=== PATIENT | male | born 1975 | race Caucasian/White ===

== ENCOUNTER 2019-04-04 01:14 | Outpatient (CLI) | payer BC, SELFPAY ==
[2019-04-04 09:18] LABS: Anion Gap 9.8 mmol/L (3-11); BUN 21 mg/dL (7-18); CO2 26.2 mmol/L (21.0-32.0); CREATININE 1.24 mg/dL (0.70-1.30); Calcium 9.1 mg/dL (8.5-10.1); Chloride 104 mmol/L (98-107); Glucose 121 mg/dL (70-100); Potassium 4.2 mmol/L (3.5-5.1); Sodium 140 mmol/L (136-145)
== END 2019-04-04 01:34 ==
PROVIDERS: PCP Physician Assistant Medical; Visit Provider Physician Assistant Medical
DX: Z79.899 Other long term (current) drug therapy (principal)
CPT/HCPCS: 36415; 80048

== ENCOUNTER 2020-01-25 00:45 | Outpatient (CLI) | payer MEDICAID, SELFPAY ==
--- NOTE | 2020-01-25 | DI.US_ITS ---
EXAM: US SCROTUM CLINICAL HISTORY: TESTICULAR MASS LT, N50.9. TECHNIQUE: Scrotal ultrasound performed using grayscale, color-flow and spectral Doppler analysis. COMPARISON: No exams were available for comparison FINDINGS: Right testicle: 4.7 x 2.7 x 3.6 cm Echogenicity: Normal. Contour: Smooth. Mass: None seen. Microlithiasis: None. Hydrocele: Small right hydrocele measuring 2.5 x 0.8 x 1.8 cm. Variocele: None. Hernia: No peristalsing bowel loop identified. Epididymis: Small epididymal head cysts. The largest measures 5 mm. Left testicle: 5.1 x 2.9 x 3.3 cm Echogenicity: Normal. Contour: Smooth. Mass: None seen. Microlithiasis: None. Hydrocele: Small left hydrocele measuring 1.7 x 1.4 x 0.7 cm. Variocele: None. Hernia: No peristalsing bowel loop identified. Epididymis: 2 epididymal head cysts. The largest measures 1.1 x 0.8 x 1.4 cm. DOPPLER: Color: Symmetric and uniform, no hyperemia. Duplex: Bilateral testicular arterial waveforms visualized. IMPRESSION: 1. No evidence of an intra testicular mass. 2. Bilateral epididymal head cysts. 3. Small bilateral hydroceles. DATA REPOSITORY:
== END 2020-01-25 01:05 ==
PROVIDERS: PCP Physician Assistant Medical; Visit Provider Physician Assistant Medical
DX: N50.89 Other specified disorders of the male genital organs (principal); N43.3 Hydrocele, unspecified; N50.3 Cyst of epididymis
CPT/HCPCS: 76870

== ENCOUNTER 2020-05-16 12:12 | Outpatient (REF) | payer MEDICAID, SELFPAY ==
[2020-05-21 10:51] LABS: Patient Race White; SARS-CoV-2 RNA Undetected (Undetected); SARS-CoV-2 Specimen Source Nasal
== END 2020-05-16 12:32 ==
LOC: NCHCN 12:12
PROVIDERS: PCP Physician Assistant Medical; Visit Provider Family Medicine
DX: R05 Cough (principal); J02.9 Acute pharyngitis, unspecified
CPT/HCPCS: U0003; 87070

== ENCOUNTER 2020-09-26 10:52 | Outpatient (REF) | payer MEDICAID, SELFPAY ==
--- OUTSIDE RECORDS SUMMARY | 2020-09-26 10:56 | XMS_ITS ---
:1975 Author Care Team Providers Name Role Phone [facility] MEDICAL RECORDS Primary Care Provider [phone] ANGELITO DORMAN Primary Care Provider [phone] Allergies Code Code System Name Reaction Severity Status Onset 548657 RxNorm Buspar ? ? Active ? 688419 RxNorm Lamictal ? ? Active ? 709456 RxNorm Nexium ? ? Active ? Sulfa ? ? Active ? (Sulfonamide Antibiotics) Medications Name Status Start Date Stop Date ? ? alprazolam 0.5 mg disintegrating tablet Active ? Not available Take 1 tablet 3 times a day by oral route. alprazolam 2 mg tablet Active ? Not avail able Take 1 tablet 3 times a day by oral route. Celebrex 100 mg capsule Active ? Not avai lable Take 1 capsule every day by oral route. clonidine HCl 0.1 mg tablet Active ? Not available Take 1 tablet twice a day by oral route. gabapentin 100 mg capsule Active ? Not av ailable Take 1 capsule 3 times a day by oral route. indomethacin 50 mg capsule Active ? Not a vailable Take 1 capsule 3 times a day by oral route. mupirocin 2 % topical ointment Completed ? 0 12/13/2019 APPLY A SMALL AMOUNT TO THE AFFECTED AREA BY TOPICAL ROUTE 3 TI MES PER DAY oxcarbazepine 600 mg tablet Active ? Not available Take 1 tablet twice a day by oral route. ranitidine 150 mg capsule Active ? Not av ailable Take 1 capsule twice a day by oral route. Problems Name Status Onset Date Source ? Obesity Active 12/11/2019 ? Bipolar Disorder Active 12/11/2019 ? Anxiety Active 12/11/2019 ? Agoraphobia Active 12/11/2019 ? Tobacco User Active 12/11/2019 ? Reactive Depression (Situational) Active 12/11/2019 ? Depressive Disorder Active 12/11/2019 ? Sleep Disorder Active 12/11/2019 ? Headache Active 12/11/2019 ? Apnea Active 12/11/2019 ? Medication Monitoring Active 12/11/2019 ? Snoring Active 12/12/2019 ? Psychophysiologic Insomnia Active 12/13/2019 ? Obstructive Sleep Apnea Syndrome Active ? ? Procedures None recorded. Results Lab Results None recorded. Past Encounters 05/21/2020 Obstructive Sleep Apnea Syndrome [place] [employer]: [address] [phone], Ph. 12/13/2019 Snoring; Psychophysiologic Insomnia [employer] [place]: [address] [phone], Ph. Social History Tobacco Smoking Status Heavy Tobacco Smoker (1 PPD) Notes: still smoking Vaccine List None recorded. Plan of Care Reminders Provider Appointments None ? ? recorded. Lab None ? ? recorded. Referral None ? ? recorded. Procedures None ? ? recorded. Surgeries None ? ? recorded. Imaging None ? ? recorded. Vitals 05/21/2020 03:45PM Office 30 Height Weight BMI 182.88 cm 111.13 kg 33.2 kg/m2 12/13/2019 08:30AM New Patient 47 Height Weight BMI 182.88 cm 113.4 kg 33.9 kg/m2
[2020-09-26 15:39] LABS: Abs Immature Grans 0.08 10^3/uL (0.0-0.06); Absolute Basophil Count 0.07 10^3/uL (0.0-0.2); Absolute Eosinophil Count 0.22 10^3/uL (0.0-0.7); Absolute Lymphocyte Count 2.17 10^3/uL (1.2-3.4); Absolute Monocyte Count 0.41 10^3/uL (0.1-0.8); Absolute Neutrophil Count 8.67 10^3/uL (1.2-6.7); Basophils % 0.6; Eosinophils % 1.9; HCT 54.9 % (40.0-50.0); HGB 18.6 g/dL (13.5-17.5); Immature Grans % 0.7; Lymphocytes % 18.7; MCH 27.6 pg (27.0-33.0); MCHC 33.9 % (32.0-36.0); MCV 81.3 fL (80-95); MPV 8.9 fL (8.0-11.0); Monocytes % 3.5; Neutrophils % 74.6; Nucleated RBC 0 %; Platelet Count 309 10^3/uL (130-400); RBC 6.75 10^6/uL (4.36-5.78); RDW 13.3 % (11.8-14.1); RDW-SD 38.5 fL; WBC 11.62 10^3/uL (4.4-10.8)
[2020-09-26 16:28] LABS: ALT 31 U/L (16-63); AST 16 U/L (15-37); Albumin 4.6 g/dL (3.4-5.0); Alkaline Phosphatase 98 U/L (46-116); BUN 24 mg/dL (7-18); Bilirubin, Total 0.3 mg/dL (0.2-1.0); Calcium 9.5 mg/dL (8.5-10.1); Chloride 104 mmol/L (98-107); Glucose 122 mg/dL (74-106); Potassium 4.8 mmol/L (3.5-5.1); Sodium 142 mmol/L (136-145); TSH 2.34 uIU/mL (0.36-3.74)
[2020-09-29 10:17] LABS: HIV-1/2 Ag & Ab Screen Negative (Negative)
== END 2020-09-26 10:53 | disposition home or self-care (01) ==
LOC: NCHCN 10:52
PROVIDERS: PCP Physician Assistant Medical; Visit Provider Physician Assistant Medical
DX: K21.9 Gastro-esophageal reflux disease without esophagitis (principal); Z11.4 Encounter for screening for human immunodeficiency virus [HIV]; Z79.899 Other long term (current) drug therapy
CPT/HCPCS: 80053; 87389; 84443; 85025

== ENCOUNTER 2021-05-12 16:25 | Outpatient (REF) | payer MEDICAID, SELFPAY ==
[2021-05-14 10:15] LABS: Lyme Ab w Rflx to Lyme Confirm Negative (Negative)
[2021-05-14 23:14] LABS: Anaplasma phagocytophilum Negative (Negative); B. miyamotoi PCR Negative (Negative); Babesia divergens/MO-1 Negative (Negative); Babesia duncani Negative (Negative); Babesia microti Negative (Negative); Ehrlichia chaffeensis Negative (Negative); Ehrlichia ewingii/canis Negative (Negative); Ehrlichia muris eauclairensis Negative (Negative)
== END 2021-05-12 16:26 | disposition home or self-care (01) ==
LOC: NCHCN 16:25
PROVIDERS: PCP Physician Assistant Medical; Visit Provider Physician Assistant Medical
DX: W57.XXXA Bitten or stung by nonvenomous insect and other nonvenomous arthropods, initial encounter (principal); T14.8XXA Other injury of unspecified body region, initial encounter
CPT/HCPCS: 87798; 86618

== ENCOUNTER 2023-05-03 19:32 | Outpatient (REF) | payer BC, MEDICAID, SELFPAY ==
[2023-05-03 15:48] LABS: Abs Immature Grans 0.07 10^3/uL (0.0-0.06); Absolute Eosinophil Count 0.26 10^3/uL (0.0-0.7); Absolute Lymphocyte Count 2.16 10^3/uL (1.2-3.4); Absolute Monocyte Count 0.43 10^3/uL (0.1-0.8); Absolute Neutrophil Count 8.04 10^3/uL (1.2-6.7); Basophils % 0.5; Eosinophils % 2.4; HCT 49.3 % (40.0-50.0); Immature Grans % 0.6; Lymphocytes % 19.6; MCH 27.8 pg (27.0-33.0); MCHC 34.5 % (32.0-36.0); MCV 81 fL (80-95); Monocytes % 3.9; Platelet Count 278 10^3/uL (130-400); RBC 6.12 10^6/uL (4.36-5.78); RDW 13.2 % (11.8-14.1); RDW-SD 37.7 fL; WBC 11.01 10^3/uL (4.4-10.8)
[2023-05-03 15:57] LABS: Absolute Basophil Count 0.06 10^3/uL (0.0-0.2)
[2023-05-03 16:02] LABS: ALT 32 U/L (16-63); AST 16 U/L (15-37); Albumin 3.9 g/dL (3.4-5.0); Alkaline Phosphatase 77 U/L (46-116); Anion Gap 7.7 mmol/L (3-11); BUN 21 mg/dL (7-18); Bilirubin, Total 0.4 mg/dL (0.2-1.0); CO2 22.3 mmol/L (21.0-32.0); CREATININE 0.9 mg/dL (0.70-1.30); Calcium 8.7 mg/dL (8.5-10.1); Calculated LDL 138 mg/dL (<100); Chloride 107 mmol/L (98-107); Cholesterol 191 mg/dL (<200); Estimated GFR 107.33 (mL/min/1.73m2); Glucose 113 mg/dL (74-106); HDL Cholesterol 26 mg/dL (40-60); Potassium 4.7 mmol/L (3.5-5.1); Sodium 137 mmol/L (136-145); Total Protein 7.2 g/dL (6.4-8.2); Triglyceride 137 mg/dL (<150)
[2023-05-04 14:12] LABS: Hemoglobin A1C 5.3 % (<5.7)
== END 2023-05-03 19:33 | disposition home or self-care (01) ==
LOC: NCHCN 19:32
PROVIDERS: PCP Physician Assistant Medical; Visit Provider Physician Assistant Medical
DX: Z00.8 Encounter for other general examination (principal); R73.01 Impaired fasting glucose
CPT/HCPCS: 80053; 80061; 83036; 85025

== ENCOUNTER 2024-12-09 01:03 | Emergency (ER) | payer OTHER, SELFPAY ==
[2024-12-09 01:14] VITALS: BP 168/90; PULSE 80; RESP 16; TEMP 36.1; O2SAT 97
[2024-12-09 01:38] VITALS: RESP 18
--- NOTE | 2024-12-09 01:41 | W.ED.GENAD ---
Discharge Plan Disposition Patient Disposition: Home Condition: Good Discharge Details Clinical Impression: Transient confusion Primary Care Provider: Jacqueline Grier ED Provider: Crow De La Fuente Home Meds and New Rx's Prescriptions: No Action fluticasone propionate [Flonase Allergy Relief] 50 mcg/actuation spray,suspension 2 spray intranasal DAILY 30 Days Qty: 16 12RF Rx Instructions: administer into each nostril famotidine 40 mg tablet 40 mg PO DAILY gabapentin 300 mg capsule 900 mg PO QHS alprazolam 1 mg tablet 1 mg PO DAILY ibuprofen 800 MG tablet 800 mg PO TID PRN PRN (Reason: PAIN) Qty: 30 0RF Discharge Instructions Additional Instructions: At this time there is no evidence to suggest active stroke, or other significant emergent life-threatening abnormality on exam. However as we discussed together there is a low but potential likelihood for intracranial abnormalities or blood abnormalities. At this time through shared decision making process we have decided to hold off on additional imaging or labs. That being said, if you have any continuation of your symptoms or any repeat episode of your symptoms I would recommend prompt return to the emergency department for the test that we had discussed today. Please drink plenty of fluids and stay well-hydrated. If you notice any worsening of your symptoms, or any new symptoms such as vomiting, diarrhea, fever, chills, shortness of breath, chest pain, numbness, weakness, or fainting , please return immediately to the emergency department for reevaluation. Please follow up with your primary care provider as soon as possible for reassessment and reevaluation. As always, it was a pleasure participating in your medical care today. Referrals: Jacqueline Grier PA [Primary Care Provider] - Discharge Data Discharge Date/Time-TO BE ENTERED AT DEPARTURE: 12/09/24 01:51 HPI General Date/Time Provider Initiated Documentation: 12/09/24 01:09. HPI Narrative: This is a pleasant 49-year-old male with a past medical history of anxiety, bipolar type II, panic disorder with agoraphobia, GERD, depression, who is currently transitioning from cigarette use to vaping. He presents today with his significant other for evaluation of transient confusion. Patient states that he went to bed later than normal at around 11:00 tonight. Then about an hour and a half prior to arrival the patient woke up confused. Significant other states that he was in a daze and look like walking zombie. She began asking him questions and he did not know answers to common household knowledge factors like the names of certain pets, or other things. He was able to talk and interact but his affect was off. This lasted for about 5 minutes after which she returned to his normal intellectual state he was able to answer all questions correctly. The patient recalls the entire event and denies any headache, loss of consciousness chest pain or shortness of breath. He states he did feel confused during this phase, but that has resolved. He states he feels like he is back at his baseline. The patient significant other states that his affect is still off compared to normal but is otherwise returned to baseline. Patient denies any personal or family history of stroke at a young age, he denies any IV or illicit drug use. No history of diabetes. He denies any medication changes, marijuana use, or change in his vaping product. Related Data Home Medications ?Medication ?Instructions ?Recorded ?Confirmed ibuprofen 800 mg tablet 800 mg PO TID PRN PRN PAIN #30 tabs 07/11/15 01/19/23 famotidine 40 mg tablet 40 mg PO DAILY 01/30/20 01/19/23 fluticasone propionate 50 2 spray intranasal DAILY 30 days 01/19/23 01/19/23 mcg/actuation nasal #16 grams spray,suspension (Flonase Allergy Relief) alprazolam 1 mg tablet 1 mg PO DAILY 10/19/23 gabapentin 300 mg capsule 900 mg PO QHS 10/19/23 Previous Rx's ?Medication ?Instructions ?Recorded ibuprofen 800 mg tablet 800 mg PO TID PRN PRN PAIN #30 tabs 07/11/15 fluticasone propionate 50 2 spray intranasal DAILY 30 days 01/19/23 mcg/actuation nasal #16 grams spray,suspension (Flonase Allergy Relief) Allergies Allergy/AdvReac Type Severity Reaction Status Date / Time diclofenac Allergy Severe nausea?? Verified 01/19/23 14:28 Sulfa (Sulfonamide Allergy Intermediate Hives Verified 01/19/23 14:28 Antibiotics) sucralfate (From Carafate) Allergy Verified 01/19/23 14:28 lurasidone (From Latuda) AdvReac Severe sleep Verified 01/19/23 14:28 disturbance, nightmares ipratropium AdvReac Intermediate Dizziness/L Verified 01/19/23 14:28 ightheade lamotrigine (From Lamictal) AdvReac Intermediate aggitation, Verified 01/19/23 14:28 sexual function buspirone (From BuSpar) AdvReac Mild aggitation Verified 01/19/23 14:28 omeprazole AdvReac Mild body aches Verified 01/19/23 14:28 esomeprazole magnesium (From AdvReac severe Verified 01/19/23 14:28 Nexium) flu like symptoms General Stated Complaint: AMS/LOC DAIJA: 3 Exam Narrative Exam Narrative: 1.Const: Well-nourished, Well-developed, appearing stated age 2.Eyes: PERRL, no conjunctival injection, and symmetrical lids. 3.ENT: Atraumatic external nose and ears. Moist MM. Neck: Symmetric, trachea midline, No thyromegaly. 4.CVS: +S1/S2, Peripheral pulses 2+ and equal in all extremities. Brisk capillary refill in all extremities. 5.RESP: Unlabored respiratory effort. Clear to auscultation bilaterally. No wheezes rales or rhonchi 6.GI: Soft, Nontender/Nondistended, No hepatosplenomegaly. No guarding or rebound. 7.MSK: Normocephalic/Atraumatic, Extremities w/o deformity or ttp No cyanosis or clubbing, Normal movement of all extremities 8.Skin: Warm, Dry. No rashes or lesions. 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 Sensation grossly intact, no focal neurologic deficits. All 6 cardinal planes of vision are fully intact. No evidence of rotatory or vertical nystagmus. The patient demonstrated a normal [id number], good dexterity. There was no evidence of dysdiadochokinesia. Patient was able to ambulate without difficulty. There was no wide-based gait. Romberg testing was normal. [id number] testing was normal. Sensation was intact bilaterally as well as muscle strength bilaterally for all extremities. Patient was able to verbalize butter cup with no slurring, or miss pronunciation. 10.Psych: (AAO) x3. Appropriate mood and affect Course Vital Signs Vital signs: Vital Signs Temperature 36.1 C L 12/09/24 01:14 Pulse 80 12/09/24 01:14 Respiratory Rate 16 12/09/24 01:14 Blood Pressure 168/90 H 12/09/24 01:14 Pulse Oximetry 97 12/09/24 01:14 Temperature 36.1 C L 12/09/24 01:14 Temperature Source Temporal Artery Scan 12/09/24 01:14 Pulse 80 12/09/24 01:14 Respiratory Rate 18 12/09/24 01:38 Respiratory Effort Normal 12/09/24 01:38 Blood Pressure 168/90 H 12/09/24 01:14 Blood Pressure Position Sitting 12/09/24 01:14 Pulse Oximetry 97 12/09/24 01:14 Oxygen Delivery Method Room Air 12/09/24 01:14 Oxygen Flow Rate 0 12/09/24 01:14 Medical Decision Making This is a pleasant 49-year-old male with a past medical history of anxiety, bipolar type II, panic disorder with agoraphobia, GERD, depression, who is currently transitioning from cigarette use to vaping. He presents today with his significant other for evaluation of transient confusion. Patient states that he went to bed later than normal at around 11:00 tonight. Then about an hour and a half prior to arrival the patient woke up confused. Significant other states that he was in a daze and look like walking zombie. She began asking him questions and he did not know answers to common household knowledge factors like the names of certain pets, or other things. He was able to talk and interact but his affect was off. This lasted for about 5 minutes after which she returned to his normal intellectual state he was able to answer all questions correctly. The patient recalls the entire event and denies any headache, loss of consciousness chest pain or shortness of breath. He states he did feel confused during this phase, but that has resolved. He states he feels like he is back at his baseline. The patient significant other states that his affect is still off compared to normal but is otherwise returned to baseline. Patient denies any personal or family history of stroke at a young age, he denies any IV or illicit drug use. No history of diabetes. He denies any medication changes, marijuana use, or change in his vaping product. Exam demonstrates well-appearing male, no signs of trauma. No nuchal rigidity or meningismus. Normal neurologic assessment with no evidence of altered mental status, or focal neurologic deficit. He has no headache to suggest intracranial aneurysm or tumor. No vision changes numbness tingling or weakness or focal deficit to suggest stroke, blood glucose was checked and is 110. No evidence to suggest hypoglycemia. Differential is highest for transient global amnesia, sleepwalking, mild dehydration causing mild altered mental status, all of which has completely resolved though. Significant other states that the patient's personality is not back at his baseline, but he is otherwise functionally at his baseline. I had a long discussion with the patient, I discussed my differential, as well as potential diagnostic testing for further assessment. At this time I do not see an indication for emergent CT imaging or labs, as the patient shows no abnormalities on assessment or exam otherwise. However I did offer IV blood work and CT imaging for further assessment of potential unlikely etiologies. I did discuss imaging options for the patient and at this time through notable discussion, weighing the risks and benefits, and a shared decision making process the patient has refused imaging and laboratory workup at this time. Patient is of an appropriate age to make decisions. The patient is of sound mind, appears clinically sober, and has capacity to make decisions by my clinical exam. Respecting the patient's wishes we will hold off on imaging. Understanding this, patient would like to go home. I do feel that this is reasonable. Patient will be discharged, however I had a long discussion with his partner importance of prompt return if symptoms persist return. Patient and partner understand. Discussed red flags for which to return. I have extensively reviewed the treatment plan and discharge instructions with the patient and their family. I have addressed all patient concerns at this time. The patient and family was made aware of what symptoms to monitor for that would warrant a return to the emergency department. Discussed the plan with the patient and family, they demonstrate verbal understanding and agreement with our assessment and plan at this time. The documentation in this chart was dictated using [employer] dictation software. Please excuse any dictation errors. Quality:SDOH Health Related Social Needs: No Data to Display PFSH All Active Problems (Updated 12/09/24 @ 01:43 by Crow De La Fuente DO) Transient confusion (Acute) History of acute otitis media (Acute) Nasal congestion (Acute) Cyst of epididymis determined by ultrasound (Acute) Inguinal abscess (Acute) Anxiety disorder (Acute) Medical History Abscess Apnea Bipolar II disorder Cellulitis of finger, left Depression Encounter for medication monitoring Exposure to COVID-19 virus Generalized anxiety disorder GERD (gastroesophageal reflux disease) Headache Insomnia Mass of left testicle Obesity Otitis media Panic disorder with agoraphobia Situational depression Sleep disorder Tobacco use disorder Social History (Updated 01/19/23 @ 14:29 by Jemma Skelton RN) Smoking/Tobacco Use Status: Current every day Smoking risk assessment performed?: Yes Alcohol Intake: never Drug use: Rarely Substance use type: marijuana Do you feel safe at home: Yes Do you feel safe in your relationship?: Yes
[2024-12-09 01:50] VITALS: BP 127/92; PULSE 77; RESP 18; O2SAT 96
== END 2024-12-09 01:51 | disposition home or self-care (01) ==
PROVIDERS: Emergency Provider Student in an Organized Health Care Education/Training Program; PCP Physician Assistant Medical
DX: R40.4 Transient alteration of awareness (principal); F41.9 Anxiety disorder, unspecified
CPT/HCPCS: 82962; 99283